=== PATIENT | female | born 1960 | race Caucasian/White ===

== ENCOUNTER 2024-01-30 14:46 | Outpatient (CLI) | payer MEDICAID | END 2024-01-30 23:59 | disposition critical access hospital (66) | LOC: EMS 14:46 | DX: R45.1 Restlessness and agitation (principal) | CPT/HCPCS: A0425; A0427; A0999 ==

== ENCOUNTER 2024-01-30 15:19 | Inpatient (IN) | payer MEDICAID, OTHER ==
--- NOTE | 2024-01-30 15:32 | ED Physician Documentation ---
History of Present Illness - Stated complaint Stated Complaint: ETOH/AGGRESSIVE - Additonal information Additional information: 63-year-old female with no known pertinent past medical history because patient does not seek medical care for concerns of seizures. Patient was brought in via EMS because she started having seizures last night around 2 AM. She has had alcohol withdrawal seizures about 2 years ago. Patient's daughter reports that from what she knows understands she did not think that her mom was drinking but there was an empty bottle of alcohol found in the patient's room. She has had a total of 3 seizures and when medics arrived on scene she is very hostile a ggressive and angry attempting to hit spit kick and bite medics. She arrived to the emergency department with 4 point locked restraints and upon arrival to the emergency department after she had been here about 30 minutes she started to have another seizure with a postictal episode. Patient refuses to provide history she refuses to speak with me she refuses to tell me any sort of past medical history what brings her into the emergency department. PD PAST MEDICAL HISTORY - Past Medical History Past Medical History: No - Present Medications Home Medications: Ambulatory Orders Medication Instructions Recorded Confirmed No Known Home Medications 01/30/24 01/30/24 - Allergies Allergies/Adverse Reactions: Allergies Allergy/AdvReac Type Severity Reaction Status Date / Time No Known Drug Allergies Allergy Verified 01/30/24 15:25 PD ED PE NORMAL - Vitals Vital signs reviewed: Yes - General General: Other (disheveled) - HEENT HEENT: Atraumatic, PERRL - Neck Neck: No bony TTP - Cardiac Cardiac: RRR - Respiratory Respiratory: No respiratory distress, Clear bilaterally - Abdomen Abdomen: Normal bowel sounds, Soft, Non tender - Back Back: No CVA TTP, No spinal TTP - Derm Derm: Normal color, Warm and dry, No rash - Extremities Extremities: No edema - Neuro Neuro: edge worker 2-12 intact, No motor deficit, No sensory deficit, Normal speech Eye Opening: Spontaneous Motor: Obeys Commands PD ED PE EXPANDED - Psych Psych: Intoxicated / AOB, Withdrawn, Poor eye contact, Non verbal, Agitated, Combative Results - Vitals Vitals: Vital Signs - 24 hr 01/30/24 01/30/24 01/30/24 15:25 17:32 19:00 Temperature 36.2 C L Heart Rate 120 H 99 107 H Respiratory 25 H 19 23 Rate Blood Pressure 143/100 H 137/83 H 130/78 O2 Saturation 96 93 93 01/30/24 01/30/24 20:00 21:37 Temperature Heart Rate 93 90 Respiratory 20 36 H Rate Blood Pressure 110/77 107/74 O2 Saturation 94 96 Oxygen O2 Source Room air - Labs Labs: Laboratory Tests 01/30/24 01/30/24 15:49 15:49 WBC 8.8 RBC 4.87 Hgb 15.8 Hct 46.0 MCV 94.5 MCH 32.4 H MCHC 34.3 RDW 15.0 Plt Count 223 MPV 10.6 Neut # (Auto) 7.1 H Lymph # (Auto) 0.9 L [place] # (Auto) 0.7 Eos # (Auto) 0.0 Baso # (Auto) 0.1 Absolute Nucleated RBC 0.00 Nucleated RBC % 0.0 Sodium 135 Potassium 3.4 L Chloride 95 L Carbon Dioxide 26 Anion Gap 14.0 H BUN 7 Creatinine 0.5 L Estimated GFR (MDRD) 125 Glucose 96 Calcium 9.7 Magnesium 1.7 Total Bilirubin 0.8 AST 25 ALT 15 Alkaline Phosphatase 209 H Total Creatine Kinase 163 Total Protein 7.8 Albumin 4.5 Globulin 3.3 Albumin/Globulin Ratio 1.4 Lipase 30 TSH 1.99 Salicylates < 1.5 Acetaminophen 0.3 Ethyl Alcohol < 10.0 - Rads (name of study) Head CT without Relevant Findings:: Final report received, EMP independent interpretation of test, Other (No acute intracranial abnormalities or findings.) Cervical spine without Relevant Findings:: Final report received, EMP independent interpretation of test, Other (No acute cervical fracture or dislocation, mild torticollis, moderate biapical emphysematous changes) PD Medical Decision Making - ED course ED course: 63-year-old female presents emergency department via EMS for confused, altered mental status, seizures. Patient has had a total of 4 seizures today most likely alcohol withdrawal as her daughter did find an empty bottle of alcohol in her room. 63-year-old female was home alone with her granddaughter who is 13 who is currently living with her right now, and 1 because she was concerned her grandmother was having recurrent seizures. Patient's daughter her does not live there but was there to the the house immediately after patient's granddaughter notified her. Patient has not seen a medical provider or medical help for over 30 years patient's daughter does report that she does have a history of alcohol dependence but last she understood the patient was sober. Patient will not speak with me she is alert she did have 1 seizure while she was here in the emergency department did have some bleeding in her mouth so she does appear to have bitten her tongue and did have a postictal episode. She is given 2 mg of IV Ativan and has remained seizure-free since then. Her alcohol level was 0 other labs for the most part fairly unremarkable she does have an elevated alk phos most likely due to alcohol dependence no significant electrolyte abnormalities no leukocytosis no anemia. I spoke with the telemetry hospitalist and he has a graciously agreed to admit the patient for further hospitalization and workup and monitoring while patient withdraws from alcohol. There is no focal neurological deficits to make me concerned of a possible stroke. Head CT was complete as well as a cervical spine CT and no acute abnormal findings are visualized. Departure - Departure Disposition: [facility] DC/Pratima
--- NOTE | 2024-01-30 15:49 | ED Physician Documentation ---
Restraint [id number] - Immediate Situation Face to Face Evaluation Date: 01/30/24 Face to Face Evaluation Time: 15:47 Restraint Classification: Violent, physical - Patient's Reaction & Behaviors Safety: Physically unsafe, Non-compliant Verbal: Demanding, Screaming/Yelling, Swearing Harm: Actual harm to self, Actual harm to others, Verbalizes intent to harm Physical: Aggressive behavior, Fighting restraints, Biting, Kicking - Behavioral Condition Attitude: Guarded Behavior: Uncooperative, Agitated Orientation: Person Mood: Angry, Anxious, Other (agitated) - Evaluation Pertinent History/Illicit Drugs/Medications/Results: Patient with known history of alcohol withdrawal seizures she had apparently 2 seizures at home and has been uncooperative since then.
[2024-01-30 16:08] LABS: BASOPHILS # (AUTO) 0.1 10^3/uL (0.0-0.1); BASOPHILS % (AUTO) 0.6 %; HGB - HEMOGLOBIN 15.8 g/dL (12.0-16.0); LYMPHOCYTES # (AUTO) 0.9 10^3/uL (1.5-3.5); LYMPHOCYTES % (AUTO) 10.2 %; MEAN CORPUSCULAR HEMOGLOBIN 32.4 pg (27.0-31.0); MEAN CORPUSCULAR HGB CONC 34.3 g/dL (32.0-36.0); MEAN CORPUSCULAR VOLUME 94.5 fL (81.0-99.0); MEAN PLATELET VOLUME 10.6 fL (7.9-10.8); MONOCYTES # (AUTO) 0.7 10^3/uL (0.0-1.0); NEUTROPHILS # (AUTO) 7.1 10^3/uL (1.5-6.6); NEUTROPHILS % (AUTO) 81.1 %; PLT - PLATELET COUNT 223 10^3/uL (130-450); RED BLOOD COUNT 4.87 10^6/uL (4.20-5.40); WHITE BLOOD COUNT 8.8 x10^3/uL (4.8-10.8)
[2024-01-30 16:18] LABS: ACETAMINOPHEN 0.3 ug/mL; ALBUMIN 4.5 g/dL (3.2-5.5); ALBUMIN/GLOBULIN RATIO 1.4 (1.0-2.2); ALKALINE PHOSPHATASE 209 IU/L (42-121); ALT ALANINE AMINOTRANSFERASE 15 IU/L (10-60); AST ASPARTATE AMINOTRANSFERASE 25 IU/L (10-42); BILIRUBIN,TOTAL 0.8 mg/dL (0.2-1.0); BUN - BLOOD UREA NITROGEN 7 mg/dL (6-20); CALCIUM 9.7 mg/dL (8.5-10.3); CARBON DIOXIDE - CO2 26 mmol/L (21-32); CHLORIDE 95 mmol/L (101-111); CK- CREATINE KINASE 163 IU/L (30-223); CREATININE 0.5 mg/dL (0.6-1.3); ETOH - ETHANOL < 10.0 mg/dL; GFR - MDRD 125 (>89); GLUCOSE 96 mg/dL (74-104); LIPASE 30 U/L (11-82); MAGNESIUM 1.7 mg/dL (1.7-2.3); POTASSIUM 3.4 mmol/L (3.5-4.5); SODIUM 135 mmol/L (135-145); TOTAL PROTEIN 7.8 g/dL (6.4-8.9)
[2024-01-30 16:22] LABS: SALICYLATE < 1.5 mg/dL
[2024-01-30 16:26] LABS: THYROID STIMULATING HORMONE 1.99 uIU/mL (0.34-5.60)
--- NOTE | 2024-01-30 17:05 | CT Report ---
PROCEDURE: Head WO INDICATIONS: seizures, GLF TECHNIQUE: Noncontrast 4.5 mm thick angled axial sections acquired from the foramen magnum to the vertex. For r adiation dose reduction, the following was used: automated exposure control, adjustment of mA and/or kV according to patient size. COMPARISON: None. FINDINGS: Image quality: Excellent. CSF spaces: Basal cisterns are patent. No extra-axial fluid collections. Ventricles are normal in size and shape. Brain: No midline shift. No intracranial masses or hemorrhage. Tanner-white matter interface is norm al. Intracranial carotid calcifications. Age-related volume loss and mild, age-appropriate small ves camron ischemic change. Skull and face: Calvarium and visualized facial bones are intact, without suspicious lesions. Sinuses: Visualized sinuses and mastoids are clear. IMPRESSION: No acute intracranial pathology. Reviewed by: Ervin Gonzalez MD on 01/30/2024 5:04 PM PDT Approved by: Ervin Gonzalez MD on 01/30/2024 5:04 PM PDT Station ID: [id number]
--- NOTE | 2024-01-30 17:13 | CT Report ---
PROCEDURE: Cervical Spine WO INDICATIONS: GLF, ETOH use TECHNIQUE: Noncontrast 3 mm thick sections acquired from the skull base to the T4 level. Sagittal and coronal r eformats were then constructed. For radiation dose reduction, the following was used: automated exp osure control, adjustment of mA and/or kV according to patient size. COMPARISON: None. FINDINGS: Image quality: Excellent. Bones: No fractures or dislocations. Incidental note is made of the presence of respiratory subluxat ion of C1 on C2, typically incidental based on head rotation. Relatively mild cervical spondylosis wi th multilevel right facet arthropathy. Mild torticollis, with the neck bent to the right. Visualized superior ribs are intact. Soft tissues: Prevertebral soft tissues are normal in thickness. No paravertebral hematomas. No ap ical pneumothoraces. Moderate biapical emphysematous change. IMPRESSION: 1. No acute cervical fracture or dislocation. 2. Cervical spondylosis. 3. Incidental note made of rotatory subluxation of C1 on C2, typically incidental, based on head rota tion. 4. Mild torticollis. 5. Moderate biapical emphysematous change. Reviewed by: Ervin Gonzalez MD on 01/30/2024 5:11 PM PDT Approved by: Ervin Gonzalez MD on 01/30/2024 5:11 PM PDT Station ID: [id number]
[2024-01-30] MEDS: LORazepam 2 MG/ML VIAL IVP STA (18:21)
[2024-01-30] MEDS: SODIUM CHLORIDE 0.9% 1,000 ML IV ONE (18:21)
[2024-01-30] MEDS ORDERED: ONDANSETRON 4 MG/2 ML VIAL IVP PRN (21:52)
[2024-01-30] MEDS ORDERED: SODIUM CHLORIDE FLUSH 0.9% 10 ML SYRINGE IVP PRN (21:52)
[2024-01-30] MEDS ORDERED: LORazepam 2 MG/ML VIAL IVP PRN (21:56)
[2024-01-30] MEDS: SODIUM CHLORIDE 0.9% 1,000 ML IV SCH ×2 (22:07→23:06)
--- NOTE | 2024-01-30 22:07 | HISTORY & PHYSICAL EXAMINATION ---
Chief Complaint - Chief Complaint Chief Complaint: Seizure History of Present Illness - History of Present Illness HPI Comment/Other: 63 y old female with PMH alcohol abuse was brought into ER due to possible alcohol withdrawl seizure. Pt is awake but does not talk or cooperate for examination, so most of history is by ER physician Apparently pt had 3 seizures at home and 1 in ER. Pt received 2 mg ativan in ER CT head and C spine showed no acute abnormalities Pt is admitted due to alcohol withdrawl seizures Meds/Allgy - Home Medications Home Medications: Ambulatory Orders Medication Instructions Recorded Confirmed No Known Home Medications 01/30/24 01/30/24 - Allergies Allergies/Adverse Reactions: Allergies Allergy/AdvReac Type Severity Reaction Status Date / Time No Known Drug Allergies Allergy Verified 01/30/24 15:25 Review of Systems - Other Findings Other Findings: unable to obtain as pt is non-cooperative Exam - Vital Signs Vital Signs: Vital Signs x48h Temp Pulse Resp BP Pulse Ox 01/30/24 21:37 90 36 H 107/74 96 01/30/24 20:00 93 20 110/77 94 01/30/24 19:00 107 H 23 130/78 93 01/30/24 17:32 99 19 137/83 H 93 01/30/24 15:25 36.2 C L 120 H 25 H 143/100 H 96 - Physical Exam General Appearance: positive: No acute distress, Alert Eyes Bilateral: positive: Normal inspection ENT: positive: ENT inspection nml Neck: positive: Nml inspection Respiratory: positive: Breath sounds nml Cardiovascular: positive: Regular rate & rhythm Abdomen: positive: Non-tender Skin: positive: No rash Neurologic/Psychiatric: positive: Motor nml Conclusion/Plan - Lab Results Fish Bones: 01/30/24 15:49 01/30/24 15:49 - Other Other Results/Comments: A: Alcohol withdrawl seizure Alcoholism Plan: Admit in tele Seizure precautions Ativan 1 mg iv q6h prn Thiamine 100 mg iv daily Folic acid 1mg po qd Clear liquid diet supportive care DVT prophylaxic: SCD Full code Pt is admitted as inpatient as more than 2 midnight stay is expected
[2024-01-31] MEDS: SODIUM CHLORIDE FLUSH 0.9% 10 ML SYRINGE IVP SCH (03:06)
[2024-01-31 06:44] LABS: BILIRUBIN,URINE MODERATE (NEGATIVE); CLARITY,URINE CLEAR (CLEAR); GLUCOSE, URINE (UA) NEGATIVE (NEGATIVE); KETONES,URINE (UA) 40 mg/dL (NEGATIVE); LEUKOCYTE ESTERASE, URINE NEGATIVE (NEGATIVE); NITRITE,URINE NEGATIVE (NEGATIVE); OCCULT BLOOD,URINE TRACE-INTA (NEGATIVE); PH,URINE 6.5 PH (5.0-7.5); PROTEIN,URINE 30 mg/dL (NEGATIVE); UROBILINOGEN,URINE 1 (NORMAL) E.U./dL (NORMAL)
[2024-01-31 06:52] LABS: AMPHETAMINE SCREEN,URINE NEGATIVE (NEGATIVE); BARBITURATE SCREEN,UR NEGATIVE (NEGATIVE); BENZODIAZEPINES SCREEN, URINE POSITIVE (NEGATIVE); BUPRENORPHINE SCREEN, URINE NEGATIVE (NEGATIVE); COCAINE SCREEN URINE NEGATIVE (NEGATIVE); METHADONE SCREEN, URINE NEGATIVE (NEGATIVE); METHAMPHETAMINES SCREEN, URINE NEGATIVE (NEGATIVE); OPIATE SCREEN, URINE NEGATIVE (NEGATIVE); OXYCODONE SCREEN, URINE NEGATIVE (NEGATIVE); THC CANNABINOID SCREEN, URINE POSITIVE (NEGATIVE); TRICYCLIC ANTIDEPRESSANT,URINE NEGATIVE (NEGATIVE)
[2024-01-31 07:12] LABS: BACTERIA,URINE Few /HPF (None Seen); MUCUS,URINE Few Strands; RBC,URINE 0-5 /HPF (0-5); SQUAMOUS EPITHELIAL CELL,UR FEW Squamous (<= Few); WBC,URINE 0-3 /HPF (0-5)
[2024-01-31] MEDS: THIAMINE INJ 100 MG in SODIUM CHLORIDE 0.9% 50 ML IV SCH (08:06)
[2024-01-31] MEDS: FOLIC ACID 1 MG TABLET PO SCH (08:06)
[2024-01-31] MEDS: NICOTINE 7 MG PATCH TOP SCH (11:24)
--- NOTE | 2024-01-31 14:12 | PHARMACY PROGRESS NOTE ---
- Best Possible Medication History Admit Date and Time: 01/30/24 4325 Processed by: Pharmacy (Medication Reconciliation completed by Pick Pulling Machine Operator) Medication History completed: Yes Patient Interview: Completed Secondary Source(s): Insurance records As the person ultimately responsible for medication therapy, providers are able to order a medication from an existing home medication list in [facility] via the "Reconcile Routine" prior to Confirmation of that medication by director of academic support. Such practice is discouraged except when the physician, in their clinical judgment, deems that a medical need exists for a medication without regard to previous use.
[2024-01-31] MEDS: MAGNESIUM OXIDE 400 MG TABLET PO SCH (14:41)
[2024-01-31] MEDS: POTASSIUM CHLORIDE 20 MEQ/15 ML UDC PO ONE (14:41)
--- NOTE | 2024-01-31 16:57 | PROVIDER PROGRESS NOTE ---
Assessment/Plan - Problem List (1) Alcohol withdrawal seizure Assessment/Plan: Stephanie Torres presented to the emergency room on January 30, 2024 at approximately 1530. Is reported she had 3 seizures at home and 1 in the emergency room. She was given 2 mg of lorazepam in the emergency room and has received no other medications since that time. This morning she shows no signs of alcohol withdrawal. She reports she stopped drinking on Monday. Plan is to observe the patient overnight. She reports she has had 1 other episode of alcohol withdrawal seizure in the past and states it was many years ago. We discussed the fact that the frequency of alcohol seizures appear to worsen with multiple episodes. It was recommended that patient's stop drinking altogether. Patient would like to initiate a trial of gabapentin 100 mg 3 times a day to assist with alcohol craving and also the gabapentin may increase her seizure threshold. A prescription for gabapentin 100 mg 3 times a day has been sent to the outpatient pharmacy. Anticipate discharge in the morning if patient does not have any complications overnight. (2) Alcohol dependence Assessment/Plan: Patient counseled to stop drinking alcohol. She has been given information on support groups throughout the community. - Current Meds Current Meds: Current Medications Generic Name Dose Route Start Last Admin Trade Name Pratibha PRN Reason Stop Dose Admin Folic Acid 1 mg 01/31/24 09:00 01/31/24 08:06 Folic Acid 1 Mg Tablet PO 1 mg DAILY RADHA Administration Thiamine HCl 100 mg/ Sodium 51 mls @ 100 mls/hr 01/31/24 09:00 01/31/24 15:46 Chloride IV Infused DAILY RADHA Infusion Sodium Chloride 1,000 mls @ 100 mls/hr 01/30/24 23:00 01/31/24 08:43 Normal Saline 0.9% IV 100 mls/hr .Q10H RADHA Administration Magnesium Oxide 400 mg 01/31/24 14:00 01/31/24 14:41 Magnesium Oxide 400 Mg Tablet PO 400 mg BID RADHA Administration Nicotine 1 patch 01/31/24 11:00 01/31/24 11:24 Nicotine 7 Mg Patch TOP 1 patch DAILY RADHA Administration Sodium Chloride 10 ml 01/31/24 01:00 01/31/24 08:06 Sodium Chloride Flush 0.9% 10 Ml Syringe IVP 10 ml 0100,0900,1700 RADHA Administration - Lab Result Fish Bone Diagrams: 01/30/24 15:49 01/30/24 15:49 - Additional Planning My Orders: My Active Orders 01/31/24 11:00 Nicotine 7 mg Patch [Nicoderm] 1 patch TOP DAILY 01/31/24 Lunch Regular Diet [DIET] 01/31/24 14:00 Magnesium Oxide [Mag Ox] 400 mg PO BID 01/31/24 16:00 Gabapentin [Neurontin] 100 mg PO TID Subjective - Subjective Patient Reports: Other (Alert and orient to person, time and place. She denies headache, chest pain, shortness of breath and abdominal pain.) Objective Vital Signs: Vital Signs - 24 hr 01/30/24 01/30/24 01/30/24 17:32 19:00 20:00 Temperature Heart Rate 99 107 H 93 Heart Rate [ Brachial] Respiratory 19 23 20 Rate Blood Pressure 137/83 H 130/78 110/77 Blood Pressure [Left Brachial artery] O2 Saturation 93 93 94 01/30/24 01/30/24 01/31/24 21:37 22:56 06:29 Temperature 36.5 C 36.6 C Heart Rate 90 Heart Rate [ 94 100 Brachial] Respiratory 36 H 20 20 Rate Blood Pressure 107/74 Blood Pressure 122/81 H 134/96 H [Left Brachial artery] O2 Saturation 96 95 99 01/31/24 01/31/24 08:00 16:00 Temperature 36.5 C 36.4 C L Heart Rate Heart Rate [ 91 100 Brachial] Respiratory 18 20 Rate Blood Pressure Blood Pressure 122/77 128/89 H [Left Brachial artery] O2 Saturation 95 94 Oxygen O2 Source Room air I&O (Last 24 Hrs): Intake and Output Totals x24h 01/29/24 01/30/24 01/31/24 23:59 23:59 23:59 Intake Total 1000 1792.667 Output Total 500 Balance 1000 1292.667 General: Alert, Oriented x3, No acute distress Neck: No JVD Neuro: Alert Cardiovascular: Other (Positive S1-S2 Nexa heart sounds.) Respiratory: Other (Good air exchange in all lung adorno no wheezing no crackles.) Abdomen: Other (Soft nontender nondistended positive bowel sounds) Extremities: No cyanosis, No edema Skin: No rashes - Results Results: Laboratory Results WBC 8.8 x10^3/uL (4.8-10.8) 01/30/24 15:49 RBC 4.87 10^6/uL (4.20-5.40) 01/30/24 15:49 Hgb 15.8 g/dL (12.0-16.0) 01/30/24 15:49 Hct 46.0 % (37.0-47.0) 01/30/24 15:49 MCV 94.5 fL (81.0-99.0) 01/30/24 15:49 MCH 32.4 pg (27.0-31.0) H 01/30/24 15:49 MCHC 34.3 g/dL (32.0-36.0) 01/30/24 15:49 RDW 15.0 % (12.0-15.0) 01/30/24 15:49 Plt Count 223 10^3/uL (130-450) 01/30/24 15:49 MPV 10.6 fL (7.9-10.8) 01/30/24 15:49 Neut # (Auto) 7.1 10^3/uL (1.5-6.6) H 01/30/24 15:49 Lymph # (Auto) 0.9 10^3/uL (1.5-3.5) L 01/30/24 15:49 [place] # (Auto) 0.7 10^3/uL (0.0-1.0) 01/30/24 15:49 Eos # (Auto) 0.0 10^3/uL (0.0-0.7) 01/30/24 15:49 Baso # (Auto) 0.1 10^3/uL (0.0-0.1) 01/30/24 15:49 Absolute Nucleated RBC 0.00 x10^3/uL 01/30/24 15:49 Nucleated RBC % 0.0 /100WBC 01/30/24 15:49 Sodium 135 mmol/L (135-145) 01/30/24 15:49 Potassium 3.4 mmol/L (3.5-4.5) L 01/30/24 15:49 Chloride 95 mmol/L (101-111) L 01/30/24 15:49 Carbon Dioxide 26 mmol/L (21-32) 01/30/24 15:49 Anion Gap 14.0 (6-13) H 01/30/24 15:49 BUN 7 mg/dL (6-20) 01/30/24 15:49 Creatinine 0.5 mg/dL (0.6-1.3) L 01/30/24 15:49 Estimated GFR (MDRD) 125 (>89) 01/30/24 15:49 Glucose 96 mg/dL (74-104) 01/30/24 15:49 Calcium 9.7 mg/dL (8.5-10.3) 01/30/24 15:49 Magnesium 1.7 mg/dL (1.7-2.3) 01/30/24 15:49 Total Bilirubin 0.8 mg/dL (0.2-1.0) 01/30/24 15:49 AST 25 IU/L (10-42) 01/30/24 15:49 ALT 15 IU/L (10-60) 01/30/24 15:49 Alkaline Phosphatase 209 IU/L (42-121) H 01/30/24 15:49 Total Creatine Kinase 163 IU/L (30-223) 01/30/24 15:49 Total Protein 7.8 g/dL (6.4-8.9) 01/30/24 15:49 Albumin 4.5 g/dL (3.2-5.5) 01/30/24 15:49 Globulin 3.3 g/dL (2.1-4.2) 01/30/24 15:49 Albumin/Globulin Ratio 1.4 (1.0-2.2) 01/30/24 15:49 Lipase 30 U/L (11-82) 01/30/24 15:49 TSH 1.99 uIU/mL (0.34-5.60) 01/30/24 15:49 Urine Color DARK YELLOW 01/31/24 06:36 Urine Clarity CLEAR (CLEAR) 01/31/24 06:36 Urine pH 6.5 PH (5.0-7.5) 01/31/24 06:36 Ur Specific [place] 1.025 (1.002-1.030) 01/31/24 06:36 Urine Protein 30 mg/dL (NEGATIVE) H 01/31/24 06:36 Urine Glucose (UA) NEGATIVE mg/dL (NEGATIVE) 01/31/24 06:36 Urine Ketones 40 mg/dL (NEGATIVE) H 01/31/24 06:36 Urine Occult Blood TRACE-INTA (NEGATIVE) 01/31/24 06:36 Urine Nitrite NEGATIVE (NEGATIVE) 01/31/24 06:36 Urine Bilirubin MODERATE (NEGATIVE) H 01/31/24 06:36 Urine Urobilinogen 1 (NORMAL) E.U./dL (NORMAL) 01/31/24 06:36 Ur Leukocyte Esterase NEGATIVE (NEGATIVE) 01/31/24 06:36 Urine RBC 0-5 /HPF (0-5) 01/31/24 06:36 Urine WBC 0-3 /HPF (0-5) 01/31/24 06:36 Ur Squamous Epith Cells FEW Squamous (<= Few) 01/31/24 06:36 Urine Bacteria Few /HPF (None Seen) 01/31/24 06:36 Urine Mucus Few Strands 01/31/24 06:36 Ur Microscopic Review INDICATED 01/31/24 06:36 Urine Culture Comments NOT INDICATED 01/31/24 06:36 Salicylates < 1.5 mg/dL 01/30/24 15:49 Urine Opiates Screen NEGATIVE (NEGATIVE) 01/31/24 06:36 Ur Buprenorphine Scrn NEGATIVE (NEGATIVE) 01/31/24 06:36 Ur Oxycodone Screen NEGATIVE (NEGATIVE) 01/31/24 06:36 Urine Methadone Screen NEGATIVE (NEGATIVE) 01/31/24 06:36 Acetaminophen 0.3 ug/mL 01/30/24 15:49 Ur Barbiturates Screen NEGATIVE (NEGATIVE) 01/31/24 06:36 Ur Tricyclics Screen NEGATIVE (NEGATIVE) 01/31/24 06:36 Ur Phencyclidine Scrn NEGATIVE (NEGATIVE) 01/31/24 06:36 Ur Amphetamine Screen NEGATIVE (NEGATIVE) 01/31/24 06:36 U Methamphetamines Scrn NEGATIVE (NEGATIVE) 01/31/24 06:36 U Benzodiazepines Scrn POSITIVE (NEGATIVE) H 01/31/24 06:36 Urine Cocaine Screen NEGATIVE (NEGATIVE) 01/31/24 06:36 U Cannabinoids Screen POSITIVE (NEGATIVE) H 01/31/24 06:36 Ur Drug Screen Comment CUTOFF CONC BELOW: 01/31/24 06:36 Ethyl Alcohol < 10.0 mg/dL 01/30/24 15:49
[2024-01-31] MEDS: GABAPENTIN 100 MG CAPSULE PO SCH (17:13)
[2024-02-01 05:49] LABS: CALCIUM 8.3 mg/dL (8.5-10.3); CREATININE 0.4 mg/dL (0.6-1.3); MAGNESIUM 1.5 mg/dL (1.7-2.3); PHOSPHORUS 2.3 mg/dL (2.5-5.0); POTASSIUM 3.3 mmol/L (3.5-4.5)
[2024-02-01 07:49] VITALS: BP 130/85; O2SAT 94
[2024-02-01] MEDS: THIAMINE 100 MG TABLET PO SCH (08:27)
[2024-02-01] MEDS: PRENATAL VITAMIN TABLET PO SCH (08:27)
--- NOTE | 2024-02-01 08:56 | Discharge Plan ---
Discharge Plan Problem Reviewed?: Yes Disposition: Home, Self Care Condition: Stable Prescriptions: Gabapentin [Neurontin] 100 mg PO TID #90 cap Multivit-Minerals/Folic Acid [One Daily Essential Tablet] 0.5 mg PO DAILY #30 tablet Thiamine [Vitamin B-1] 100 mg PO DAILY #7 tab Diet: Regular Activity Restrictions: No Restrictions Shower Restrictions: No Driving Restrictions: No Instruction Topics: Alcoholism Get Help, Withdrawal Alcohol What Expect Health Concerns: Stephanie Torres is a 63 year old was admitted on January 30, 2024 after having a seizure at home. She stopped drinking alcohol 3 days prior to admission. She reportedly had 3 seizures at home and 1 in the emergency room. In the emergency room she received 2 mg of Ativan and was admitted to the medical floor Since admission she has had no more seizures. She has had no evidence of alcohol withdrawal. Treatment has been initiated with gabapentin 100 mg 3 times a day for alcohol withdrawal seizures. Gabapentin may also assist with alcohol cravings. Recommend patient take the gabapentin for at least 3 months and then consider discontinuing the medication. However, if patient is benefiting from the medication the medication can be continued indefinitely. The dose can be increased as tolerated. Prior to discharge patient has been counseled by social work and by myself to stop drinking alcohol.She was given a packet of support groups in the community. Currently patient does not have a primary care provider. She is going to establish care with one upon discharge and has been given a the number of coorindated care. Plan of Treatment: 1. Please take all medications as prescribed. 2. Please establish care with a primary care provider. 3. Recommend abstinence from alcohol. Care Goals: Goal of care is to return to baseline and remained seizure-free. Assessment: (1) Alcohol withdrawal seizure Assessment/Plan: Stephanie Torres presented to the emergency room on January 30, 2024 at approximately 1530. She reportedly had 3 seizures at home and 1 in the emergency room. She was given 2 mg of lorazepam in the emergency room and has received no other medications since that time. Since her admission she has had no seizures and has no evidence of alcohol withdrawal. We discussed the fact that the frequency of alcohol seizures appear to worsen with multiple episodes. It was recommended that patient stop drinking altogether. Patient would like to initiate a trial of gabapentin 100 mg 3 times a day to assist with alcohol craving and also the gabapentin may increase her seizure threshold. A prescription for gabapentin 100 mg 3 times a day has been sent to the outpatient pharmacy. (2) Alcohol dependence Assessment/Plan: Patient counseled to stop drinking alcohol. She has been given information on support groups throughout the community. No Smoking: If you smoke, Please STOP! Call for help.
--- NOTE | 2024-02-01 08:56 | DISCHARGE SUMMARY ---
Discharge Summary Admit Date: 01/30/24 Discharge Date: 01/31/24 Discharging Provider: Sanjay Herron MD Primary Care Provider: Patient needs to establish care with a primary care provider. Code Status: Attempt Resuscitation Condition at Discharge: Stable Discharge Disposition: 01 Home, Self Care Discharge Facility [facility]: [facility] - DIAGNOSES Admission Diagnoses: (1) Alcohol withdrawal seizure (2) Alcohol dependence Discharge Diagnoses with Status of Each Condition: (1) Alcohol withdrawal seizure (2) Alcohol dependence - HPI History of Present Illness: Stephanie Torres is a 63 year old was admitted on January 30, 2024 after having a seizure at home. She stopped drinking alcohol 3 days prior to admission. She reportedly had 3 seizures at home and 1 in the emergency room. In the emergency room she received 2 mg of Ativan and was admitted to the medical floor Since admission she has had no more seizures. She has had no evidence of alcohol withdrawal. Treatment has been initiated with gabapentin 100 mg 3 times a day for alcohol withdrawal seizures. Gabapentin may also assist with alcohol cravings. Recommend patient take the gabapentin for at least 3 months and then consider discontinuing the medication. However, if patient is benefiting from the medication the medication can be continued indefinitely. The dose can be increased as tolerated. Prior to discharge patient has been counseled by social work and by myself to stop drinking alcohol.She was given a packet of support groups in the community. Currently patient does not have a primary care provider. She is going to [facility] with one upon discharge and has been given a the number of coorindated care. - HOSPITAL COURSE Hospital Course: See history of present illness - ALLERGIES Allergies/Adverse Reactions: Allergies Allergy/AdvReac Type Severity Reaction Status Date / Time No Known Drug Allergies Allergy Verified 01/30/24 15:25 - MEDICATIONS Home Medications: Ambulatory Orders Medication Instructions Recorded Confirmed Gabapentin [Neurontin] 100 mg PO TID #90 cap 01/31/24 Ibuprofen [Ibu-200] 200 mg PO TID PRN 01/31/24 01/31/24 Melatonin [Melatoninmax] 10 mg PO QPM PRN 01/31/24 01/31/24 Omeprazole [PriLOSEC] 10 mg PO DAILY PRN 01/31/24 01/31/24 Multivit-Minerals/Folic Acid [One 0.5 mg PO DAILY #30 tablet 02/01/24 Daily Essential Tablet] Thiamine [Vitamin B-1] 100 mg PO DAILY #7 tab 02/01/24 - PHYSICAL EXAM AT DISCHARGE General Appearance: positive: No acute distress, Alert Eyes Bilateral: positive: Conjunctivae nml, No scleral icterus Neck: positive: Thyroid nml, No JVD, Trachea midline Respiratory: positive: Other (Good air exchange in all lung adorno no wheezing no crackles.) Cardiovascular: positive: Other (Positive S1-S2 no extra heart sounds) Abdomen: positive: Other (Soft nontender nondistended positive bowel sounds.) Skin: positive: No rash Extremities: positive: No pedal edema Neurologic/Psychiatric: positive: Oriented x3, Motor nml - LABS Result Diagrams: 01/30/24 15:49 02/01/24 05:33 - QUALITY (Female Hip Fx Only) Was patient sent home on osteoporosis medication?: No - FOLLOW UP Follow Up: Recommend patient establish care with a primary care provider. She has been given the number for coordinated care. - TIME SPENT Time Spent in Discharge (Minutes): 28
[2024-02-01] MEDS: polyethylene glycoL 3350 17 GM PACKET PO SCH (10:18)
== END 2024-02-01 11:16 | disposition home or self-care (01) | DRG 897 ==
LOC: EDBD → EDUNIT# → ED 15:19 → MS2 21:53
PROVIDERS: ADMIT Internal Medicine; ATTEND Internal Medicine
DX: F10.239 Alcohol dependence with withdrawal, unspecified (principal); G40.89 Other seizures
CPT/HCPCS: 36415; 70450; 72125; 80048; 80053; 80143; 80179; 80306; 81001; 82077; 82550; 83690; 83735; 84100; 84443; 85025; 96361; 96374; 99285; A9270; J2060; J3411; J7040; 81003; 87086

== ENCOUNTER 2024-03-10 01:46 | Outpatient (CLI) | payer MEDICAID | END 2024-03-10 23:59 | disposition left against medical advice (07) | LOC: EMS 01:46 | DX: R56.9 Unspecified convulsions (principal) ==

== ENCOUNTER 2024-03-10 02:58 | Outpatient (CLI) | payer MEDICAID | END 2024-03-10 23:59 | disposition critical access hospital (66) | LOC: EMS 02:58 | DX: R56.9 Unspecified convulsions (principal) | CPT/HCPCS: A0425; A0427; A0999 ==

== ENCOUNTER 2024-03-10 03:26 | Emergency (ER) | payer MEDICAID ==
--- NOTE | 2024-03-10 03:33 | ED Physician Documentation ---
PD HPI SEIZURE - Stated complaint Stated Complaint: SZ - History obtained from History obtained from: Family, EMS - Additional information Additional information: 63-year-old female with history of alcohol use disorder, reportedly in remission presents by EMS from home for seizure-like activity. Patient had witnessed seizure activity by her daughter at around 2 AM that lasted approximately 45 seconds. When medics arrived the patient was awake, alert, oriented, she declined medical transport and EMS left the facility. Approximately 30 minutes later they were called back to the residence for another witnessed episode of seizure-like activity, this time lasting around 30 seconds. EMS administered 2 mg IM Versed and transported the patient for evaluation. EMS was able to get an Accu-Chek of 145 and a blood pressure and route, however EKG unable to be obtained as patient was combative and poorly cooperative. On arrival patient was awake, alert, oriented. Still poorly cooperative with nursing staff. Daughter at bedside was able to convince patient to stay for blood work. Patient states that she has not had any alcohol since her last admission to the hospital 01/30/2024. Presentation is almost identical to today. At that time patient's seizure activity was attributed to alcohol withdrawal and she was discharged on 3 times daily gabapentin. Review of Systems Constitutional: denies: Fever, Chills Throat: denies: Dental pain / toothache, Oral lesions / sores, Sore throat Cardiac: denies: Chest pain / pressure, Palpitations, Calf pain Respiratory: denies: Dyspnea, Cough, Wheezing : denies: Dysuria, Frequency, Hesitancy Neurologic: reports: Seizure. denies: Generalized weakness, Focal weakness, Numbness, Syncope, Headache, Head injury, LOC PD PAST MEDICAL HISTORY - Past Medical History Cardiovascular: None Respiratory: None, Other Neuro: Seizure disorder, Motion sickness Endocrine/Autoimmune: None GI: GERD : None Psych: Depression, Anxiety Musculoskeletal: Other Derm: None - Past Surgical History /ICE PULLER: section HEENT: Tonsil/Adenoidectomy - Present Medications Home Medications: Ambulatory Orders Medication Instructions Recorded Confirmed Gabapentin [Neurontin] 100 mg PO TID #90 cap 01/31/24 03/10/24 Ibuprofen [Ibu-200] 200 mg PO TID PRN 01/31/24 03/10/24 Melatonin [Melatoninmax] 10 mg PO QPM PRN 01/31/24 03/10/24 Omeprazole [PriLOSEC] 10 mg PO DAILY PRN 01/31/24 03/10/24 Multivit-Minerals/Folic Acid [One 0.5 mg PO DAILY #30 tablet 02/01/24 03/10/24 Daily Essential Tablet] Thiamine [Vitamin B-1] 100 mg PO DAILY #7 tab 02/01/24 03/10/24 - Allergies Allergies/Adverse Reactions: Allergies Allergy/AdvReac Type Severity Reaction Status Date / Time No Known Drug Allergies Allergy Verified 03/10/24 03:52 - Social History Does the pt smoke?: No Smoking Status: Current every day smoker Does the pt drink ETOH?: Yes - Immunizations Immunizations are current?: No Immunizations: Other immun not current PD ED PE NORMAL - Vitals Vital signs reviewed: Yes - General General: Alert and oriented X 3, Other (Appears chronically unwell, older than stated age) - Cardiac Cardiac: RRR, Strong equal pulses - Respiratory Respiratory: No respiratory distress, Clear bilaterally - Abdomen Abdomen: Soft, Non tender, Non distended - Derm Derm: Normal color, Warm and dry, No rash - Neuro Neuro: Alert and oriented X 3, admissions officer 2-12 intact, No motor deficit, No sensory deficit, Normal speech Results - Vitals Vitals: Vital Signs - 24 hr 03/10/24 03/10/24 03/10/24 03:26 04:00 04:21 Temperature 36.6 C Heart Rate 90 103 H 93 Respiratory 16 13 22 Rate Blood Pressure 157/90 H 156/90 H 136/94 H O2 Saturation 98 91 L 94 If not protocol 2 : Oxygen Flow, liters/minute 03/10/24 03/10/24 03/10/24 04:55 05:00 05:35 Temperature 36.3 C L Heart Rate 105 H 100 98 Respiratory 24 15 18 Rate Blood Pressure 195/11 H 171/103 H 163/103 H O2 Saturation 94 95 94 If not protocol 3 3 3 : Oxygen Flow, liters/minute 03/10/24 03/10/24 03/10/24 05:57 06:16 06:35 Temperature 36.9 C Heart Rate 102 H 81 115 H Respiratory 22 18 18 Rate Blood Pressure 125/108 H 160/113 H 147/107 H O2 Saturation 94 93 If not protocol 3 3 3 : Oxygen Flow, liters/minute 03/10/24 03/10/24 03/10/24 06:40 06:52 07:12 Temperature 36.1 C L 36.1 C L Heart Rate 108 H 106 H 108 H Respiratory 15 18 18 Rate Blood Pressure 170/101 H 141/86 H 128/93 H O2 Saturation 100 100 100 If not protocol 15 15 15 : Oxygen Flow, liters/minute 03/10/24 03/10/24 03/10/24 07:30 08:00 08:30 Temperature Heart Rate 75 80 91 Respiratory 18 18 15 Rate Blood Pressure 132/99 H 122/78 144/89 H O2 Saturation 95 92 93 If not protocol : Oxygen Flow, liters/minute 03/10/24 03/10/24 03/10/24 09:00 09:30 10:00 Temperature Heart Rate 92 88 86 Respiratory 16 17 20 Rate Blood Pressure 162/98 H 154/83 H 148/97 H O2 Saturation 93 94 93 If not protocol : Oxygen Flow, liters/minute 03/10/24 03/10/24 03/10/24 10:30 11:00 11:30 Temperature Heart Rate 69 112 H 81 Respiratory 17 16 16 Rate Blood Pressure 130/85 H 138/97 H 137/87 H O2 Saturation 93 94 93 If not protocol : Oxygen Flow, liters/minute 03/10/24 03/10/24 03/10/24 12:00 12:30 13:30 Temperature Heart Rate 84 81 94 Respiratory 16 18 17 Rate Blood Pressure 126/81 H 135/87 H 135/89 H O2 Saturation 94 93 92 If not protocol : Oxygen Flow, liters/minute 03/10/24 03/10/24 03/10/24 14:00 14:30 15:00 Temperature Heart Rate 94 83 89 Respiratory 18 18 16 Rate Blood Pressure 135/89 H 132/87 H O2 Saturation 92 94 93 If not protocol : Oxygen Flow, liters/minute 03/10/24 03/10/24 03/10/24 15:30 16:00 16:30 Temperature Heart Rate 90 91 90 Respiratory 16 18 20 Rate Blood Pressure 132/87 H O2 Saturation 93 92 92 If not protocol : Oxygen Flow, liters/minute 03/10/24 17:00 Temperature Heart Rate 89 Respiratory 93 H Rate Blood Pressure O2 Saturation If not protocol : Oxygen Flow, liters/minute Oxygen O2 Source Room air Oxygen Flow Rate 2 - Labs Labs: Laboratory Tests 09/03/10/24 03/10/24 03:40 03:40 04:00 WBC 7.8 RBC 4.57 Hgb 14.6 Hct 44.4 MCV 97.2 MCH 31.9 H MCHC 32.9 RDW 14.6 Plt Count 271 MPV 11.0 H Neut # (Auto) 4.6 Lymph # (Auto) 2.4 [place] # (Auto) 0.5 Eos # (Auto) 0.2 Baso # (Auto) 0.1 Absolute Nucleated RBC 0.00 Nucleated RBC % 0.0 Sodium 139 Potassium 3.6 Chloride 104 Carbon Dioxide 26 Anion Gap 9.0 BUN 6 Creatinine 0.5 L Estimated GFR (MDRD) 125 Glucose 111 H Lactic Acid 1.7 Calcium 9.6 Total Bilirubin 0.4 AST 14 ALT 10 Alkaline Phosphatase 219 H Total Protein 7.3 Albumin 4.2 Globulin 3.1 Albumin/Globulin Ratio 1.4 Urine Color Urine Clarity Urine pH Ur Specific [place] Urine Protein Urine Glucose (UA) Urine Ketones Urine Occult Blood Urine Nitrite Urine Bilirubin Urine Urobilinogen Ur Leukocyte Esterase Ur Microscopic Review Urine Culture Comments Salicylates < 1.5 Urine Opiates Screen Ur Buprenorphine Scrn Ur Oxycodone Screen Urine Methadone Screen Acetaminophen < 0.1 Ur Barbiturates Screen Ur Tricyclics Screen Ur Phencyclidine Scrn Ur Amphetamine Screen U Methamphetamines Scrn U Benzodiazepines Scrn Urine Cocaine Screen U Cannabinoids Screen Ur Drug Screen Comment Ethyl Alcohol < 10.0 03/10/24 03/10/24 06:12 06:12 WBC RBC Hgb Hct MCV MCH MCHC RDW Plt Count MPV Neut # (Auto) Lymph # (Auto) [place] # (Auto) Eos # (Auto) Baso # (Auto) Absolute Nucleated RBC Nucleated RBC % Sodium Potassium Chloride Carbon Dioxide Anion Gap BUN Creatinine Estimated GFR (MDRD) Glucose Lactic Acid Calcium Total Bilirubin AST ALT Alkaline Phosphatase Total Protein Albumin Globulin Albumin/Globulin Ratio Urine Color YELLOW Urine Clarity CLEAR Urine pH 7.0 Ur Specific [place] 1.025 Urine Protein TRACE Urine Glucose (UA) NEGATIVE Urine Ketones NEGATIVE Urine Occult Blood TRACE-LYSE Urine Nitrite NEGATIVE Urine Bilirubin NEGATIVE Urine Urobilinogen 0.2 (NORMAL) Ur Leukocyte Esterase NEGATIVE Ur Microscopic Review NOT INDICATED Urine Culture Comments NOT INDICATED Salicylates Urine Opiates Screen NEGATIVE Ur Buprenorphine Scrn NEGATIVE Ur Oxycodone Screen NEGATIVE Urine Methadone Screen NEGATIVE Acetaminophen Ur Barbiturates Screen NEGATIVE Ur Tricyclics Screen NEGATIVE Ur Phencyclidine Scrn NEGATIVE Ur Amphetamine Screen NEGATIVE U Methamphetamines Scrn NEGATIVE U Benzodiazepines Scrn NEGATIVE Urine Cocaine Screen NEGATIVE U Cannabinoids Screen POSITIVE H Ur Drug Screen Comment CUTOFF CONC BELOW: Ethyl Alcohol PD Medical Decision Making - ED course Complexity details: reviewed old records, reviewed results, re-evaluated patient, considered differential, d/w patient, d/w family ED course: 2 episodes of witnessed seizure-like activity. Patient initially uncooperative and irritable on arrival. She however was awake, alert, oriented. Her daughter was able to talk to her at bedside and convince patient to stay for evaluation. After daughter left the room patient was asked about alcohol intake. Patient adamantly denies any alcohol since her discharge from the hospital 1 month prior. She states that she has been compliant with her gabapentin. She is trying to follow-up with a primary care doctor, but has not yet been successful in making a follow-up appointment. Laboratory work reviewed, so far unremarkable. Preliminary review of chest x-ray and CT brain negative for acute findings or change from previous. I was called to bedside as patient had abrupt change in mental status and breathing pattern shortly after undergoing CT imaging. Patient did not have any abnormal shaking activity, but did appear to have her jaw clenched, decreased mental status, and gurgling. This resolved spontaneously and patient began to have return of mental status Case discussed with [facility] neurology Dr. Brand. Labs, imaging findings, presentation of symptoms discussed. Neurology recommends stopping gabapentin, loading with 2 g of IV Keppra, and subsequently starting on 750 mg twice daily of Keppra for seizure preventative. Patient will need an outpatient MRI and EEG, but this does not need to be done on an inpatient basis and she does not need to be transferred for inpatient evaluation as long as patient has returned to mental baseline. Patient at time of consult awake, alert, oriented, at baseline. Prior to receiving Keppra patient again had another witnessed episode of generalized shaking seizure activity lasting approximately 45 seconds. She did receive 2 mg IV Ativan that helped to abort seizure. During this episode patient became hypoxic, had to be rolled onto her side, nonrebreather applied. This is now patient's fourth suspected episode of seizure activity. I do not believe patient will be well-managed on an outpatient basis, especially since she does not even have a primary care doctor. Will attempt to call facilities for neurology transfer. Care of patient signed to Dr. Mercado at 0700 - Critical Care Time(min): 49 Time Includes: Direct patient care, Review records, Reassess patient, Document care, Coordinate care, Medical consult, Family consult for tx dec, See progress note Data interpretation: Labs, Pulse ox, CXR, Prior EKG, Cardiac output Departure - Departure Disposition: 02 Transfer Acute Care Hosp Clinical Impression: Recurrent seizures Condition: Serious Forms: PCP List Discharge Date/Time: 03/10/24 17:21
[2024-03-10 04:00] LABS: BASOPHILS # (AUTO) 0.1 10^3/uL (0.0-0.1); BASOPHILS % (AUTO) 0.9 %; EOSINOPHILS # (AUTO) 0.2 10^3/uL (0.0-0.7); EOSINOPHILS % (AUTO) 2.3 %; HCT - HEMATOCRIT 44.4 % (37.0-47.0); HGB - HEMOGLOBIN 14.6 g/dL (12.0-16.0); LYMPHOCYTES # (AUTO) 2.4 10^3/uL (1.5-3.5); LYMPHOCYTES % (AUTO) 30.7 %; MEAN CORPUSCULAR HEMOGLOBIN 31.9 pg (27.0-31.0); MEAN CORPUSCULAR HGB CONC 32.9 g/dL (32.0-36.0); MEAN CORPUSCULAR VOLUME 97.2 fL (81.0-99.0); MONOCYTES # (AUTO) 0.5 10^3/uL (0.0-1.0); MONOCYTES % (AUTO) 6.2 %; NEUTROPHILS # (AUTO) 4.6 10^3/uL (1.5-6.6); NEUTROPHILS % (AUTO) 59.8 %; PLT - PLATELET COUNT 271 10^3/uL (130-450); RED BLOOD COUNT 4.57 10^6/uL (4.20-5.40); RED CELL DISTRIBUTION WIDTH 14.6 % (12.0-15.0); WHITE BLOOD COUNT 7.8 x10^3/uL (4.8-10.8)
[2024-03-10 04:16] LABS: ALBUMIN 4.2 g/dL (3.2-5.5); ALBUMIN/GLOBULIN RATIO 1.4 (1.0-2.2); ALKALINE PHOSPHATASE 219 IU/L (42-121); ALT ALANINE AMINOTRANSFERASE 10 IU/L (10-60); AST ASPARTATE AMINOTRANSFERASE 14 IU/L (10-42); BILIRUBIN,TOTAL 0.4 mg/dL (0.2-1.0); BUN - BLOOD UREA NITROGEN 6 mg/dL (6-20); CALCIUM 9.6 mg/dL (8.5-10.3); CARBON DIOXIDE - CO2 26 mmol/L (21-32); CHLORIDE 104 mmol/L (101-111); CREATININE 0.5 mg/dL (0.6-1.3); ETOH - ETHANOL < 10.0 mg/dL; GFR - MDRD 125 (>89); GLUCOSE 111 mg/dL (74-104); POTASSIUM 3.6 mmol/L (3.5-4.5); SODIUM 139 mmol/L (135-145); TOTAL PROTEIN 7.3 g/dL (6.4-8.9)
[2024-03-10 04:24] LABS: ACETAMINOPHEN < 0.1 ug/mL; SALICYLATE < 1.5 mg/dL
[2024-03-10 06:30] LABS: BILIRUBIN,URINE NEGATIVE (NEGATIVE); GLUCOSE, URINE (UA) NEGATIVE (NEGATIVE); KETONES,URINE (UA) NEGATIVE (NEGATIVE); LEUKOCYTE ESTERASE, URINE NEGATIVE (NEGATIVE); NITRITE,URINE NEGATIVE (NEGATIVE); OCCULT BLOOD,URINE TRACE-LYSE (NEGATIVE); PROTEIN,URINE TRACE mg/dL (NEGATIVE); UROBILINOGEN,URINE 0.2 (NORMAL) E.U./dL (NORMAL)
[2024-03-10 06:31] LABS: CLARITY,URINE CLEAR (CLEAR)
[2024-03-10 06:32] LABS: AMPHETAMINE SCREEN,URINE NEGATIVE (NEGATIVE); BARBITURATE SCREEN,UR NEGATIVE (NEGATIVE); BENZODIAZEPINES SCREEN, URINE NEGATIVE (NEGATIVE); BUPRENORPHINE SCREEN, URINE NEGATIVE (NEGATIVE); COCAINE SCREEN URINE NEGATIVE (NEGATIVE); METHADONE SCREEN, URINE NEGATIVE (NEGATIVE); METHAMPHETAMINES SCREEN, URINE NEGATIVE (NEGATIVE); OPIATE SCREEN, URINE NEGATIVE (NEGATIVE); OXYCODONE SCREEN, URINE NEGATIVE (NEGATIVE); THC CANNABINOID SCREEN, URINE POSITIVE (NEGATIVE); TRICYCLIC ANTIDEPRESSANT,URINE NEGATIVE (NEGATIVE)
[2024-03-10] MEDS ORDERED: LORazepam 2 MG/ML VIAL ONE (06:40)
[2024-03-10] MEDS: LORazepam 2 MG/ML VIAL IVP STA (06:41)
[2024-03-10] MEDS: levETIRAcetam 500 MG/5 ML VIAL IVP STA (06:44)
--- NOTE | 2024-03-10 07:09 | ED Physician Documentation ---
ED Addendum - Addendum Addendum: 03/10/24 07:09 Signed out to me by Dr. Wu at 7 AM shift change. Briefly 63-year-old woman with new onset status epilepticus. Briefly has seized and thought related to alcohol use but the patient is adamant that she has not had alcohol since that prior admission. 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 Search is ongoing for bed at a tertiary facility and she has been loaded with Keppra. 03/10/24 07:[address] Oden, neurologist at [facility], who defers to hospitalist for admit. 03/10/24 08:12 Seen and examined at the bedside. She is sleeping comfortably with sonorous respirations. She is off oxygen at this point with sats around 90. Still waiting for callback from the hospitalist in [place]. 03/10/24 08:[address] Michel, Hospitalist in [place] pending bed availability which may be some time. 03/10/24 13:31 Subsequently because of the delay to bed availability the health munitions worker was calling around and [facility] called me back and the hospitalist Dr. Banerjee accepted her at this time. 03/10/24 13:41 Updated daughter by phone at this time and patient is slightly sleepy but alert and oriented and able to talk to me. Disposition: Transferred to [facility] for specialty care Condition: Stable Diagnosis: 1. Status epilepticus
--- NOTE | 2024-03-10 09:13 | CT Report ---
PROCEDURE: Head WO INDICATIONS: seizure x 2 TECHNIQUE: Noncontrast 4.5 mm thick angled axial sections acquired from the foramen magnum to the vertex. For r adiation dose reduction, the following was used: automated exposure control, adjustment of mA and/or kV according to patient size. COMPARISON: CT head January 30, 2024. FINDINGS: Image quality: Excellent. CSF spaces: Basal cisterns are patent. No extra-axial fluid collections. Ventricles are normal in size and shape. Brain: Remote lacunar infarcts within the basal ganglia. Cerebellar calcification is unchanged. No m idline shift. No intracranial masses or hemorrhage. Tanner-white matter interface is normal. Skull and face: Calvarium and visualized facial bones are intact, without suspicious lesions. Poste rior fusion defect of C1. Sinuses: Visualized sinuses and mastoids are clear. IMPRESSION: No acute intracranial pathology. Sequela of remote lacunar infarcts in the basal ganglia. Findings are concordant with preliminary interpretation provided by [facility]. Reviewed by: Sanjay Sheth MD on 03/10/2024 8:12 AM JAVED Approved by: Sanjay Sheth MD on 03/10/2024 8:12 AM JAVED Station ID: [id number]
--- NOTE | 2024-03-10 09:17 | XRAY Report ---
PROCEDURE: Chest 1V INDICATIONS: seizure x 2 TECHNIQUE: One view of the chest was acquired. COMPARISON: None. FINDINGS: Surgical changes and devices: None. Lungs and pleura: No pleural effusions or pneumothorax. Lungs are clear. Mild bronchial cuffing. Mediastinum: Mediastinal contours appear normal. Heart size is normal. Bones and chest wall: No suspicious bony lesions. Overlying soft tissues appear unremarkable. IMPRESSION: Bronchial cuffing may reflect reactive airway disease with infection not excluded Findings are concordant with preliminary interpretation provided by [facility]. Reviewed by: Sanjay Sheth MD on 03/10/2024 8:16 AM JAVED Approved by: Sanjay Sheth MD on 03/10/2024 8:16 AM JAVED Station ID: [id number]
--- NOTE | 2024-03-10 12:56 | PHARMACY PROGRESS NOTE ---
- Best Possible Medication History Admit Date and Time: Processed by: Pharmacy (Medication Reconciliation completed by [employer]) Medications reviewed in ED?: Yes Medication History completed: Yes Patient Interview: Pt unable to participate Secondary Source(s): Other family member (Patient's daughter), Insurance records As the person ultimately responsible for medication therapy, providers are able to order a medication from an existing home medication list in [facility] via the "Reconcile Routine" prior to Confirmation of that medication by intelligence support officer. Such practice is discouraged except when the physician, in their clinical judgment, deems that a medical need exists for a medication without regard to previous use.
[2024-03-10] MEDS: levETIRAcetam 250 MG TABLET PO SCH (13:24)
[2024-03-10 15:53] VITALS: BP 132/87
[2024-03-10 17:27] VITALS: O2SAT 92
== END 2024-03-10 17:21 | disposition short-term general hospital (02) ==
LOC: ED 03:26
DX: G40.901 Epilepsy, unspecified, not intractable, with status epilepticus (principal); K21.9 Gastro-esophageal reflux disease without esophagitis; F32.A Depression, unspecified; F41.9 Anxiety disorder, unspecified
CPT/HCPCS: 36415; 70450; 71045; 80053; 80143; 80179; 80306; 81003; 82077; 83605; 85025; 93005; 96374; 96375; 99285; A9270; J2060; 81001; 87086